=== PATIENT | male | born 1975 | race Caucasian/White ===

== ENCOUNTER 2024-11-09 12:22 | Inpatient (IN) | payer OTHER ==
[~2024-11-09] VITALS: Ht 185.4 cm; Wt 73.9 kg
[2024-11-09 13:38] LABS: CHLORIDE 109 mEq/L (98-107); POTASSIUM 3.2 mEq/L (3.5-5.1); SODIUM 141 mEq/L (136-145)
[2024-11-09 13:39] LABS: CALCIUM 9.1 mg/dL (8.7-10.4); CARBON DIOXIDE 15 mEq/L (21-32)
[2024-11-09 13:41] LABS: BASOPHILS % 0.4 % (0.0-2.0); EOSINOPHILS % 0.7 % (0.0-5.0); HEMATOCRIT. 41.8 % (42.0-52.0); HEMOGLOBIN. 13.9 g/dL (14.0-18.0); LYMPHOCYTES % 22.5 % (20.0-50.0); MEAN CORPUSCULAR HEMOGLOBIN 27.2 pg (28.0-32.0); MEAN CORPUSCULAR HGB CONC 33.2 g/dL (31.0-37.0); MEAN PLATELET VOLUME 8.4 fl (7.4-10.4); MONOCYTES % 3.5 % (2.0-8.0); NEUTROPHILS % 72.9 % (40.0-76.0); PLATELET 227 x1000/uL (130-400); RED CELL DISTRIBUTION WIDTH 16.9 % (11.6-14.6); WHITE BLOOD COUNT 9.5 x1000/uL (4.5-11.0)
[2024-11-09] MEDS: MORPHINE SULFATE 4 MG/ML INJ (FOR IV/IM USE) IV ONE ×2 (13:41→15:37)
[2024-11-09 13:44] LABS: CREATININE 1.1 mg/dL (0.6-1.3); GLUCOSE 184 mg/dL (70-105); UREA NITROGEN BLOOD 11 mg/dL (9-23)
[2024-11-09] MEDS: ACETAMINOPHEN 1000MG/100ML 100 ML IV ONE (13:45)
[2024-11-09 13:47] LABS: INR 1.1; PROTHROMBIN TIME 11.4 sec (9.6-11.0)
[2024-11-09] MEDS ORDERED: SODIUM CHLORIDE 0.9% 1,000 ML IV ONE (14:30)
[2024-11-09] MEDS ORDERED: IOHEXOL-300 100 ML BOTTLE ONE ×2 (14:41→19:01)
[2024-11-09] MEDS ORDERED: DIATR MEGLU/DIATRIZOATE SOLN 120ML ONE (14:41)
[2024-11-09] MEDS: POTASSIUM CHLORIDE 20MEQ TABLET SR PO SCH (15:38)
[2024-11-09] MEDS: CEFTRIAXONE 1GM/50ML 50 ML IV SCH (15:38)
[2024-11-09] MEDS: SODIUM CHLORIDE 0.9% 1,000 ML IV ONE (15:38)
[2024-11-09] MEDS: SODIUM CHLORIDE 0.9% 500 ML IV ONE (15:45)
[2024-11-09 16:01] LABS: ALANINE AMINOTRANSFERASE 119 IU/L (10-49); ALBUMIN 4.2 g/dL (3.2-4.8); ASPARTATE AMINOTRANSFERASE 154 IU/L (<34); BILIRUBIN DIRECT 2.3 mg/dL (<=3.0); BILIRUBIN TOTAL 3.3 mg/dL (0.1-1.0); PROTEIN TOTAL 8.6 g/dL (6.0-8.3)
[2024-11-09 16:05] LABS: HEMATOCRIT 42.2 % (42.0-52.0); HEMOGLOBIN 13.8 g/dL (14.0-18.0); MEAN CORPUSCULAR HEMOGLOBIN 26.9 pg (28.0-32.0); MEAN CORPUSCULAR HGB CONC 32.6 g/dL (31.0-37.0); MEAN CORPUSCULAR VOLUME 82.5 fL (80.0-94.0); PLATELET 166 x1000/uL (130-400); RED BLOOD CELL COUNT 5.12 mill/uL (4.7-6.1); RED CELL DISTRIBUTION WIDTH 16.4 % (11.6-14.6); WHITE BLOOD COUNT 11.5 x1000/uL (4.5-11.0)
[2024-11-09] MEDS: METRONIDAZOLE 500 MG PREMIX 100 ML IV SCH (16:22)
[2024-11-09 19:48] LABS: HEMATOCRIT 45.4 % (42.0-52.0); HEMOGLOBIN 14.2 g/dL (14.0-18.0); MEAN CORPUSCULAR HEMOGLOBIN 26.2 pg (28.0-32.0); MEAN CORPUSCULAR HGB CONC 31.2 g/dL (31.0-37.0); PLATELET 168 x1000/uL (130-400); RED BLOOD CELL COUNT 5.41 mill/uL (4.7-6.1); RED CELL DISTRIBUTION WIDTH 17.3 % (11.6-14.6); WHITE BLOOD COUNT 12.7 x1000/uL (4.5-11.0)
[2024-11-09 19:55] LABS: CLARITY URINE CLEAR (CLEAR); GLUCOSE URINE NEGATIVE (NEGATIVE); KETONES URINE TRACE (NEGATIVE); LEUKOCYTE ESTERASE URINE NEGATIVE (NEGATIVE); NITRITE URINE NEGATIVE (NEGATIVE); OCCULT BLOOD URINE NEGATIVE (NEGATIVE); PH URINE 5.5 (4.5-8.0); PROTEIN URINE TRACE (NEGATIVE); SPECIFIC GRAVITY URINE 1.071 (1.005-1.030)
[2024-11-09 20:12] LABS: COLOR URINE YELLOW (YELLOW)
[2024-11-09 20:13] LABS: BACTERIA URINE NONE SEEN; CALCIUM OXALATE CRYSTALS URINE 1+ /lpf; RBC URINE NONE SEEN /hpf (0-2); SQUAMOUS EPITHELIAL CELL URINE NONE SEEN /lpf (RARE/1+); URIC ACID CRYSTALS URINE 2+ /lpf; WBC URINE NONE SEEN /hpf (0-2)
[2024-11-09 20:14] LABS: HYALINE CASTS URINE 0-5 /lpf
[2024-11-09] MEDS: PANTOPRAZOLE SODIUM 40 MG/VIAL IV ONE (20:54)
[2024-11-09] MEDS ORDERED: KCL 20MEQ/100ML PREMIX 100 ML IV SCH (21:00)
[2024-11-09] MEDS ORDERED: IPRATROPIUM/ALBUTEROL 0.5-3(2.5)MG/3ML NEB HHN PRN (22:45)
[2024-11-09 23:42] LABS: IRON 44 ug/dL (65-175)
[2024-11-09 23:45] LABS: TOTAL IRON BINDING CAPACITY 231 ug/dl (250-425)
[2024-11-09 23:49] LABS: FERRITIN 16 ng/mL (22-322); VITAMIN B12 SERUM 1803 pg/mL (211-911)
[2024-11-10] MEDS: KCL 20MEQ/100ML PREMIX 100 ML IV SCH (00:10)
[2024-11-10] MEDS: PIPERACILLIN/TAZO 3.375G/50ML 50 ML IV SCH ×2 (00:11→13:25)
[2024-11-10] MEDS: DEXT 5%/0.45% NACL 1000ML 1,000 ML IV SCH (00:12)
[2024-11-10 00:13] VITALS: BP 114/53; PULSE 97; RESP 18; TEMP 36.3
[2024-11-10 00:13] LABS: LACTIC ACID 3.4 mmol/L (0.4-2.0)
[2024-11-10] MEDS ORDERED: TRAZ-252 PO (00:55)
[2024-11-10 02:00] VITALS: BP 114/53; PULSE 97; RESP 18; TEMP 36.3; O2SAT 97
[2024-11-10] MEDS: TRAZODONE HCL 50MG TABLET PO NR (02:36)
[2024-11-10] MEDS: TACROLIMUS 1MG/PACKET PO NR (02:38)
[2024-11-10] MEDS ORDERED: URSO250T12 MT (05:22)
[2024-11-10] MEDS ORDERED: TACR0.5C4 MT (05:23)
[2024-11-10 08:00] VITALS: BP 105/58; PULSE 89; RESP 16; TEMP 36.7; O2SAT 97
[2024-11-10 08:16] LABS: BASOPHILS % 0.2 % (0.0-2.0); EOSINOPHILS % 1.6 % (0.0-5.0); HEMATOCRIT. 38.7 % (42.0-52.0); HEMOGLOBIN. 12.8 g/dL (14.0-18.0); MEAN CORPUSCULAR HEMOGLOBIN 26.8 pg (28.0-32.0); MEAN CORPUSCULAR VOLUME 81.2 fL (80.0-94.0); MEAN PLATELET VOLUME 8.1 fl (7.4-10.4); MONOCYTES % 7.2 % (2.0-8.0); PLATELET 179 x1000/uL (130-400); RED BLOOD CELL COUNT 4.77 mill/uL (4.7-6.1); WHITE BLOOD COUNT 9.2 x1000/uL (4.5-11.0)
[2024-11-10 08:50] LABS: CARBON DIOXIDE 20 mEq/L (21-32); CHLORIDE 110 mEq/L (98-107); POTASSIUM 3.9 mEq/L (3.5-5.1); SODIUM 139 mEq/L (136-145)
[2024-11-10 08:51] LABS: CALCIUM 8.3 mg/dL (8.7-10.4)
[2024-11-10 08:55] LABS: CREATININE 0.9 mg/dL (0.6-1.3); GLUCOSE 96 mg/dL (70-105)
[2024-11-10 08:56] LABS: LDL CHOLESTEROL 83 mg/dL (5-100); TRIGLYCERIDE 72 mg/dL (0-150); UREA NITROGEN BLOOD 12 mg/dL (9-23)
[2024-11-10 08:58] LABS: CHOLESTEROL 165 mg/dL (<200); HDL CHOLESTEROL 54 mg/dL (>55); T4 FREE 1.17 ng/dL (0.89-1.76); THYROID STIMULATING HORMONE 2.21 uIU/mL (0.55-4.78)
[2024-11-10] MEDS ORDERED: TACROLIMUS 1MG/PACKET PO SCH (09:00)
[2024-11-10] MEDS: TACROLIMUS 1MG/PACKET PO SCH (09:14)
[2024-11-10] MEDS ORDERED: DEXTROSE 50% WATER 50ML SYRINGE IV PRN (09:15)
[2024-11-10] MEDS: PANTOPRAZOLE SODIUM 40 MG/VIAL IV SCH (09:15)
[2024-11-10] MEDS: URSODIOL 300MG CAPSULE PO SCH (09:15)
[2024-11-10 09:41] LABS: *AMPHETAMINES SCREEN URINE NEGATIVE (NEGATIVE); *BARBITURATES SCREEN URINE NEGATIVE (NEGATIVE); *BENZODIAZEPINES SCREEN URINE NEGATIVE (NEGATIVE); *COCAINE SCREEN URINE NEGATIVE (NEGATIVE); CANNABINOID URINE SCREEN NEGATIVE (NEGATIVE); ECSTASY MDMA SCREEN URINE CONF.TEST INDICATED (NEGATIVE); METHADONE URINE SCREEN NEGATIVE (NEGATIVE); OPIATES URINE SCREEN PRESUMPTIVE POSITIVE (NEGATIVE); PHENCYCLIDINE URINE SCREEN NEGATIVE (NEGATIVE)
[2024-11-10 12:00] VITALS: BP 109/52; PULSE 86; RESP 18; TEMP 36.7; O2SAT 97
[2024-11-10 16:00] VITALS: BP 112/65; PULSE 81; RESP 18; TEMP 36.8; O2SAT 96
[2024-11-10] MEDS ORDERED: URSODIOL 300MG CAPSULE PO SCH (17:40)
[2024-11-10 20:00] VITALS: BP 103/40; PULSE 97; RESP 17; TEMP 36.9; O2SAT 94
[2024-11-10] MEDS: TRAZODONE HCL 50MG TABLET PO SCH (21:25)
[2024-11-10] MEDS: GUAIFENESIN 200MG/10ML SUGAR FREE UDC PO PRN (23:12)
[2024-11-11 06:09] LABS: CHLORIDE 108 mEq/L (98-107); POTASSIUM 3.6 mEq/L (3.5-5.1); SODIUM 138 mEq/L (136-145)
[2024-11-11 06:10] LABS: CALCIUM 8.1 mg/dL (8.7-10.4); CARBON DIOXIDE 22 mEq/L (21-32)
[2024-11-11 06:15] LABS: GLUCOSE 95 mg/dL (70-105); UREA NITROGEN BLOOD 9 mg/dL (9-23)
[2024-11-11 06:17] LABS: BASOPHILS % 0.2 % (0.0-2.0); EOSINOPHILS % 2.2 % (0.0-5.0); HEMATOCRIT. 34.7 % (42.0-52.0); HEMOGLOBIN. 11.5 g/dL (14.0-18.0); LYMPHOCYTES % 35.3 % (20.0-50.0); MEAN CORPUSCULAR HEMOGLOBIN 26.7 pg (28.0-32.0); MEAN PLATELET VOLUME 8.3 fl (7.4-10.4); MONOCYTES % 7.1 % (2.0-8.0); NEUTROPHILS % 55.2 % (40.0-76.0); PLATELET 167 x1000/uL (130-400); RED BLOOD CELL COUNT 4.29 mill/uL (4.7-6.1); RED CELL DISTRIBUTION WIDTH 16.6 % (11.6-14.6); WHITE BLOOD COUNT 6.3 x1000/uL (4.5-11.0)
[2024-11-11 08:00] VITALS: BP 106/66; PULSE 89; RESP 16; TEMP 37; O2SAT 96
[2024-11-11] MEDS: URSODIOL 300MG CAPSULE PO SCH (08:26)
[2024-11-11] MEDS: ASCORBIC ACID 500 MG TABLET PO SCH (08:40)
[2024-11-11 12:00] VITALS: BP 114/66; PULSE 87; RESP 20; TEMP 36.3; O2SAT 96
[2024-11-11] MEDS: FERROUS SULFATE 325MG TABLET PO SCH (13:06)
[2024-11-11 13:29] VITALS: BP 110/65; PULSE 78; TEMP 98.4; O2SAT 100
[2024-11-11 15:46] VITALS: BP 111/63; PULSE 93; RESP 18; TEMP 37; O2SAT 98
== END 2024-11-11 16:05 | disposition short-term general hospital (02) | DRG 871 ==
LOC: ER 12:22 → 8WST 20:56 → ENRESERV 21:25
PROVIDERS: ADMIT Hospitalist; ATTEND Hospitalist
DX: A41.9 Sepsis, unspecified organism (principal); K65.9 Peritonitis, unspecified; D84.821 Immunodeficiency due to drugs; E87.20 Acidosis, unspecified; R18.8 Other ascites; K86.2 Cyst of pancreas; K56.7 Ileus, unspecified; K56.600 Partial intestinal obstruction, unspecified as to cause; Z94.4 Liver transplant status; K46.9 Unspecified abdominal hernia without obstruction or gangrene; E78.5 Hyperlipidemia, unspecified; R65.20 Severe sepsis without septic shock; K52.9 Noninfective gastroenteritis and colitis, unspecified; D63.8 Anemia in other chronic diseases classified elsewhere; F90.9 Attention-deficit hyperactivity disorder, unspecified type; E87.6 Hypokalemia; K74.60 Unspecified cirrhosis of liver; K75.4 Autoimmune hepatitis; Z79.60 Long term (current) use of unspecified immunomodulators and immunosuppressants; Z79.899 Other long term (current) drug therapy; Z90.49 Acquired absence of other specified parts of digestive tract; Z93.2 Ileostomy status
CPT/HCPCS: 36415; 74174; 74177; 80048; 80061; 80076; 80197; 80305; 81003; 82607; 82728; 82746; 83540; 83550; 83605; 84145; 84439; 84443; 85025; 85027; 85044; 86850; 86900; 99291; J0696; J2270; J2470; J2543; J3480; J3490; J7507; Q9963; Q9967; J0131